=== PATIENT | male | born 1940 | race Caucasian/White ===

== ENCOUNTER → 2017-12-09 | Outpatient (CLI) | payer MEDICARE, OTHER ==
[~2017-12-09] MED LIST: ALE70 PO; ASPI-274 PO; ASPI81TA94 PO; CALC100C PO; CET10 PO; ESOM40CA42 PO; FA/M1TAB27 PO; FEX60 PO; FIN5 PO; FLAX100042 PO; LEVO50TA80 PO; MON10 PO; SIM10 PO; SIMV5TAB60 PO; SOL5 PO; SOLI10TA8 PO; SUCR1TAB PO; TAMS0.4C25 PO; VAL500 PO; [UNRECOGNIZED DRUG - OTHER]
--- NOTE | 2017-12-09 09:58 | RADIOLOGY IMAGING REPORT ---
FACILITY: [facility] - [place], [place] PATIENT NAME: Yannick Adams : 1940 MR: [id number] V: [id number] EXAM DATE: ORDERING PHYSICIAN: SADIA PEREZ TECHNOLOGIST: [place] [facility] [place] Yannick Adams : 1940 Visit/Account:[id number] Date of Sevice: 12/09/2017 DEXA Scan Clinical history: Screening. Comparison: 12/17/2016. LUMBAR SPINE: The bone mineral density (BMD) measured from L1-L4 correlates with a Z-score of -1.3 and a T-score of -2.1 which is osteopenic as defined by the World Health Organization. The cor responding risk of fracture in the lumbar spine is moderately increased compared with a young adult r eference population. This value has decreased by 0.6 % since the prior study. More than 5% change i s considered significant. HIP: Bone mineral density (BMD) measured in the Left Total Hip region correlates with a Z-score of -0.9 an d a T-score of -1.9. The T-score of the femoral neck is -2.2. The lower of the two T-scores is osteopenic as defined by the World Health Organization. Th e corresponding risk of fracture in the hip is moderately increased compared with a young adult refer ence population. This value has decreased by 2.5 % since the prior study. More than 5% change is co nsidered significant. Bone mineral density (BMD) measured in the Left Femoral Neck region measures 0.781 g/cm?. IMPRESSION: 1. Lumbar spine: Osteopenic. There has been no significant change in the bone mineral density sinc e the previous exam. 2. Left Total Hip: Osteopenic. There has been no significant change in the bone mineral density sin ce the previous exam. The next DEXA scan of this patient should include the following sites: L1-L4 and Left hip. FRAX? WHO Fracture Risk Assessment Tool link: <http://www.shef.ac.uk/FRAX/tool.jsp?locationValue=9> PLEASE NOTE: 1) The World Health Organization defines low BMD as follows: T-score Normal > -1 Osteopenia < -1 and > -2.5 Osteoporosis < -2.5 without fractures Established osteoporosis < -2.5 with fractures 2) In general, you may wish to consider: Diagnosis Treatment Follow-up DEXA Normal BMD Prevention 2-3 years Osteopenia Prevention/therapy 1-2 years Osteoporosis Therapy Yearly 3) Fracture risk estimated from the T-score is more accurate for vertebral fractures (often spontane ous) than for hip fractures. Report Dictated By: Ryan Flores MD at 12/09/2017 9:52 AM Report E-Signed By: Ryan Flores MD at 12/09/2017 9:54 AM WSN:[id number]
== END ==
LOC: RAD 01:17
PROVIDERS: ATTEND Physician Assistant
DX: Z13.820 Encounter for screening for osteoporosis (principal); M85.89 Other specified disorders of bone density and structure, multiple sites
CPT/HCPCS: 77080

== ENCOUNTER → 2018-11-03 | Outpatient (CLI) | payer MEDICARE, OTHER ==
[~2018-11-03] MED LIST changes: +SILD100T59 PO; -SIMV5TAB60 PO; +SIMV5TAB69 PO; +VALA100059 PO
[2018-11-03 17:35] LABS: PLATELET COUNT, AUTOMATED 184 K/uL (150-450)
== END ==
LOC: LAB 16:24
PROVIDERS: ATTEND Internal Medicine
DX: M85.80 Other specified disorders of bone density and structure, unspecified site (principal); E03.9 Hypothyroidism, unspecified
CPT/HCPCS: 36415; 81001; 82040; 82247; 82306; 82310; 82374; 82435; 82565; 82947; 83970; 84075; 84132; 84155; 84295; 84443; 84450; 84460; 84520; 85025

== ENCOUNTER → 2019-01-05 | Outpatient (CLI) | payer MEDICARE, OTHER ==
[~2019-01-05] MED LIST changes: +DEN60I SUBQ
== END ==
LOC: RESP 20:06
PROVIDERS: ATTEND Internal Medicine
DX: G47.33 Obstructive sleep apnea (adult) (pediatric) (principal); G47.61 Periodic limb movement disorder

== ENCOUNTER → 2019-01-25 | Outpatient (CLI) | payer MEDICARE, OTHER ==
--- NOTE | 2019-01-25 18:04 | RADIOLOGY IMAGING REPORT ---
FACILITY: [facility] PATIENT NAME: Yannick Adams : 1940 MR: [id number] V: [id number] EXAM DATE: ORDERING PHYSICIAN: DAMI SORIANO TECHNOLOGIST: Location: [facility] Patient: Yannick Adams : 1940 Visit/Account:[id number] Date of Sevice: 01/25/2019 Study: Lumbar spine series Indication: Low back pain Comparison study: None Findings: AP lateral and coned-down lateral views of the lumbar spine demonstrates no evidence of com pression fracture. There is marked disc space narrowing at the L1-2 level. There is a grade I retrol isthesis at the L1-2 level. There is no evidence of lytic or blastic lesions. IMPRESSION: Marked disc space narrowing and grade I retrolisthesis at the L1-2 level. Study is other michael unremarkable. Report Dictated By: Neo Del Valle at 01/25/2019 5:57 PM Report E-Signed By: Neo Del Valle at 01/25/2019 5:58 PM WSN:[id number]
== END ==
LOC: RAD 16:36
PROVIDERS: ATTEND Internal Medicine
DX: M54.5 Low back pain (principal)
CPT/HCPCS: 72100